=== PATIENT | male | born 1985 | race Caucasian/White ===

== ENCOUNTER 2017-05-14 18:32 | Emergency (ER) | payer MEDICAID, OTHER ==
[~2017-05-14] VITALS: Ht 162.6 cm; Wt 61.3 kg
[~2017-05-14 18:32] MED LIST: ADV100INH INH; ADV250INH INH; ADVA230A INH; ALBU17IN INH; BENA25CA2 PO; BENA25TA4 PO; CELE40TA PO; CLAR10CA3 PO; DIPH25CA PO; INVE156I IM; LAMI25TA PO; LEXA1TAB PO; LEXA1TAB2 PO; MINI1CAP PO; OMEP10CASR PO; OMEP20CA3 PO; PANT20TA PO; PANT40TA2 PO; RISP25INJ IM; RISP2TAB32 PO; TIOT18INH INH; TRAZ50TA11 PO; ZOLO100T PO; ZYPR10TA PO; ZYRT10CA PO; [UNRECOGNIZED DRUG - OTHER]
[2017-05-14] MEDS ORDERED: DEPA500T2 PO (19:00)
[2017-05-14] MEDS ORDERED: BENA25TA10 PO (19:00)
[2017-05-14] MEDS ORDERED: FOLI1TAB4 PO (19:00)
[2017-05-14] MEDS ORDERED: ZYPR5TAB2 PO (19:00)
[2017-05-14] MEDS ORDERED: ADV500INH INH (19:00)
[2017-05-14] MEDS ORDERED: CITA20TA4 PO (19:00)
[2017-05-14] MEDS ORDERED: traZODone 50 MG TAB PO ONE (21:00)
[2017-05-14] MEDS ORDERED: PRAZOSIN 1 MG CAP PO ONE (21:00)
[2017-05-14 21:02] VITALS: BP 131/76
== END 2017-05-14 21:10 | disposition home or self-care (01) ==
LOC: M ED 18:32
DX: Z76.0 Encounter for issue of repeat prescription (principal); F41.9 Anxiety disorder, unspecified; F17.200 Nicotine dependence, unspecified, uncomplicated; Z79.899 Other long term (current) drug therapy; Z91.040 Latex allergy status; Z91.030 Bee allergy status

== ENCOUNTER 2017-07-04 11:50 | Inpatient (IN) | payer MEDICAID ==
[~2017-07-04] VITALS: Ht 162.6 cm; Wt 63.6 kg
[~2017-07-04 11:50] MED LIST changes: +ADV500INH INH; +BENA25TA10 PO; +CITA20TA4 PO; +DEPA500T2 PO; +FOLI1TAB4 PO; +ZYPR5TAB2 PO
[2017-07-04] MEDS ORDERED: DIVA125C5 PO ×2 (12:06)
[2017-07-04 12:24] LABS: MEAN CORPUSCULAR HEMOGLOBIN 29.1 pg (27.0-33.0); MEAN CORPUSCULAR HGB CONC 34.2 g/dl (32.0-36.5); MEAN CORPUSCULAR VOLUME 84.9 fl (80.0-96.0); RED CELL DISTRIBUTION WIDTH 13.3 % (11.5-14.5); WHITE BLOOD COUNT 6.3 10^3/uL (4.0-10.0)
[2017-07-04 12:51] LABS: ALBUMIN 3.9 GM/DL (3.2-5.2); ALBUMIN/GLOBULIN RATIO 1.39 (1.00-1.93); ALKALINE PHOSPHATASE 62 U/L (45-117); ALT/SGPT 19 U/L (12-78); ANION GAP 7 MEQ/L (8-16); AST/SGOT 13 U/L (15-37); BILIRUBIN,DIRECT 0.1 MG/DL (0.0-0.2); BILIRUBIN,TOTAL 0.4 MG/DL (0.2-1.0); BLOOD UREA NITROGEN 11 MG/DL (7-18); CALCIUM LEVEL 8.2 MG/DL (8.5-10.1); CARBON DIOXIDE LEVEL 29 MEQ/L (21-32); CHLORIDE LEVEL 105 MEQ/L (98-107); CREATININE FOR GFR 0.91 MG/DL (0.70-1.30); GLOMERULAR FILTRATION RATE > 60.0 (>60); GLUCOSE, FASTING 89 MG/DL (70-105); POTASSIUM SERUM 3.9 MEQ/L (3.5-5.1); SODIUM LEVEL 141 MEQ/L (136-145); TOTAL PROTEIN 6.7 GM/DL (6.4-8.2)
[2017-07-04 14:06] LABS: METHADONE URINE NEGATIVE (NEGATIVE)
[2017-07-04] MEDS ORDERED: CELE10TA PO (14:28)
[2017-07-04] MEDS ORDERED: CITA20TA4 PO (14:28)
[2017-07-04] MEDS ORDERED: SPIR25TA2 PO (14:37)
[2017-07-04] MEDS ORDERED: ESTR1TAB PO (14:37)
[2017-07-04] MEDS ORDERED: MOM 30ML SUSPENSION UDC PO PRN (21:00)
[2017-07-04] MEDS ORDERED: MAALOX 30 ML SUSP *UDC PO PRN (21:00)
[2017-07-04] MEDS: OLANZapine 5 MG TAB PO SCH (21:38)
[2017-07-04] MEDS: PRAZOSIN 1 MG CAP PO SCH (21:40)
[2017-07-04] MEDS: ADVAIR HFA 230/21MCG INHALER INH SCH (21:41)
[2017-07-04] MEDS: ESTRADIOL 1 MG TAB PO SCH (21:42)
[2017-07-04] MEDS: SPIRONOLACTONE 50 MG TAB PO SCH (21:42)
[2017-07-04] MEDS: diphenhydrAMINE 50 MG CAP PO PRN (21:49)
[2017-07-04] MEDS: traZODone 50 MG TAB PO PRN (22:28)
[2017-07-05] MEDS ORDERED: OLANZapine 5 MG TAB PO ONE (00:15)
--- NOTE | 2017-07-05 08:00 | ECGEPIP ---
Stationary ECG Study [facility] - ED Test Date: 2017-07-04 Pat Name: BARB VALLE Department: Room: - Gender: M Room Worker: connor : 1985 Requested By: Stalin Luajn Order Number: [id number] Reading MD: Kathleen Rudolph Measurements Intervals Duncan Rate: 79 P: 61 LA: 142 QRS: 59 QRSD: 94 T: 23 QT: 366 QTc: 422 Interpretive Statements SINUS RHYTHM NSTTW ABNORMALITY INCREASED RATE 08/03/15 Electronically Signed On 07-05-2017 7:59:51 EDT by Kathleen Rudolph
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
[2017-07-05] MEDS ORDERED: ALBUTEROL SULFATE 2.5 MG/0.5 ML INH NEB SOLN NEB PRN (09:30)
[2017-07-05] MEDS: ADVAIR HFA 230/21MCG INHALER INH SCH ×2 (09:51→20:05)
[2017-07-05] MEDS: diphenhydrAMINE 50 MG CAP PO PRN (09:51)
[2017-07-05] MEDS: FOLIC ACID 1 MG TAB PO SCH (09:52)
[2017-07-05] MEDS: ESTRADIOL 1 MG TAB PO SCH ×2 (09:52→20:05)
[2017-07-05] MEDS: CitaloPRAM (CeleXA) 10 MG TABLET PO SCH (09:52)
[2017-07-05] MEDS: PANTOPRAZOLE 40MG TAB (PROTONIX) PO SCH (09:52)
[2017-07-05] MEDS: SPIRONOLACTONE 50 MG TAB PO SCH ×2 (09:52→16:43)
[2017-07-05] MEDS: TIOTROPIUM INHALER/CAPSULE (SPIRIVA) INH SCH (10:10)
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
[2017-07-05] MEDS ORDERED: diphenhydrAMINE 25 MG CAP PO PRN (16:15)
[2017-07-05] MEDS: ACETAMINOPHEN TAB 650MG DOSE (2X325MG) PO PRN (17:59)
[2017-07-05 18:00] VITALS: BP 119/73
[2017-07-05] MEDS: PRAZOSIN 1 MG CAP PO SCH (20:05)
[2017-07-05] MEDS: OLANZapine 5 MG TAB PO SCH (20:05)
[2017-07-05] MEDS: traZODone 50 MG TAB PO PRN (21:39)
[2017-07-06 06:56] VITALS: BP 91/51
[2017-07-06] MEDS: ESTRADIOL 1 MG TAB PO SCH ×2 (09:20→20:38)
[2017-07-06] MEDS: ADVAIR HFA 230/21MCG INHALER INH SCH ×2 (09:20→20:38)
[2017-07-06] MEDS: TIOTROPIUM INHALER/CAPSULE (SPIRIVA) INH SCH (09:20)
[2017-07-06] MEDS: diphenhydrAMINE 50 MG CAP PO PRN ×2 (09:21→16:06)
[2017-07-06] MEDS: SPIRONOLACTONE 50 MG TAB PO SCH ×2 (09:21→16:06)
[2017-07-06] MEDS: FOLIC ACID 1 MG TAB PO SCH (09:21)
[2017-07-06] MEDS: CitaloPRAM (CeleXA) 10 MG TABLET PO SCH (09:21)
[2017-07-06] MEDS: PANTOPRAZOLE 40MG TAB (PROTONIX) PO SCH (09:21)
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
[2017-07-06 18:33] VITALS: BP 134/70
[2017-07-06] MEDS: OLANZapine 5 MG TAB PO SCH (20:38)
[2017-07-06] MEDS: PRAZOSIN 1 MG CAP PO SCH (20:38)
[2017-07-06] MEDS: ACETAMINOPHEN TAB 650MG DOSE (2X325MG) PO PRN (20:39)
[2017-07-06] MEDS: traZODone 50 MG TAB PO PRN (21:00)
[2017-07-07 06:30] VITALS: BP 120/57
[2017-07-07] MEDS: PANTOPRAZOLE 40MG TAB (PROTONIX) PO SCH (09:43)
[2017-07-07] MEDS: FOLIC ACID 1 MG TAB PO SCH (09:43)
[2017-07-07] MEDS: SPIRONOLACTONE 50 MG TAB PO SCH ×2 (09:44→16:12)
[2017-07-07] MEDS: CitaloPRAM (CeleXA) 10 MG TABLET PO SCH (09:44)
[2017-07-07] MEDS: ADVAIR HFA 230/21MCG INHALER INH SCH ×2 (09:44→20:23)
[2017-07-07] MEDS: ESTRADIOL 1 MG TAB PO SCH ×2 (09:44→20:22)
[2017-07-07] MEDS: TIOTROPIUM INHALER/CAPSULE (SPIRIVA) INH SCH (09:44)
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
[2017-07-07] MEDS: diphenhydrAMINE 50 MG CAP PO PRN (16:13)
[2017-07-07 18:19] VITALS: BP 120/72
[2017-07-07] MEDS: OLANZapine 5 MG TAB PO SCH (20:22)
[2017-07-07] MEDS: PRAZOSIN 1 MG CAP PO SCH (20:25)
[2017-07-07] MEDS: traZODone 50 MG TAB PO PRN (21:11)
[2017-07-07] MEDS: ACETAMINOPHEN TAB 650MG DOSE (2X325MG) PO PRN (21:12)
[2017-07-08 06:00] VITALS: BP 111/55
[2017-07-08] MEDS: SPIRONOLACTONE 50 MG TAB PO SCH ×2 (09:22→16:12)
[2017-07-08] MEDS: TIOTROPIUM INHALER/CAPSULE (SPIRIVA) INH SCH (09:23)
[2017-07-08] MEDS: FOLIC ACID 1 MG TAB PO SCH (09:23)
[2017-07-08] MEDS: ADVAIR HFA 230/21MCG INHALER INH SCH ×2 (09:23→20:14)
[2017-07-08] MEDS: diphenhydrAMINE 50 MG CAP PO PRN (09:23)
[2017-07-08] MEDS: CitaloPRAM (CeleXA) 10 MG TABLET PO SCH (09:23)
[2017-07-08] MEDS: ESTRADIOL 1 MG TAB PO SCH ×2 (09:23→20:16)
[2017-07-08] MEDS: PANTOPRAZOLE 40MG TAB (PROTONIX) PO SCH (09:23)
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
[2017-07-08 18:00] VITALS: BP 125/76
[2017-07-08] MEDS: diphenhydrAMINE 25 MG CAP PO PRN (19:21)
[2017-07-08] MEDS: OLANZapine 5 MG TAB PO SCH (20:14)
[2017-07-08] MEDS: PRAZOSIN 1 MG CAP PO SCH (20:16)
[2017-07-08] MEDS: traZODone 50 MG TAB PO SCH (21:21)
[2017-07-08] MEDS: ACETAMINOPHEN TAB 650MG DOSE (2X325MG) PO PRN (21:21)
[2017-07-09 07:00] VITALS: BP 101/52
[2017-07-09] MEDS: ADVAIR HFA 230/21MCG INHALER INH SCH ×2 (09:15→20:57)
[2017-07-09] MEDS: CitaloPRAM (CeleXA) 10 MG TABLET PO SCH (09:16)
[2017-07-09] MEDS: TIOTROPIUM INHALER/CAPSULE (SPIRIVA) INH SCH (09:16)
[2017-07-09] MEDS: PANTOPRAZOLE 40MG TAB (PROTONIX) PO SCH (09:17)
[2017-07-09] MEDS: FOLIC ACID 1 MG TAB PO SCH (09:17)
[2017-07-09] MEDS: SPIRONOLACTONE 50 MG TAB PO SCH ×2 (09:17→17:08)
[2017-07-09] MEDS: ESTRADIOL 1 MG TAB PO SCH ×2 (09:17→20:56)
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
[2017-07-09 18:00] VITALS: BP 100/50
[2017-07-09] MEDS: diphenhydrAMINE 25 MG CAP PO PRN (20:56)
[2017-07-09] MEDS: traZODone 50 MG TAB PO SCH (20:56)
[2017-07-09] MEDS: OLANZapine 5 MG TAB PO SCH (20:56)
[2017-07-09] MEDS: PRAZOSIN 1 MG CAP PO SCH (20:57)
[2017-07-10 06:45] VITALS: BP 133/66
[2017-07-10] MEDS: CitaloPRAM (CeleXA) 10 MG TABLET PO SCH (09:45)
[2017-07-10] MEDS: FOLIC ACID 1 MG TAB PO SCH (09:45)
[2017-07-10] MEDS: SPIRONOLACTONE 50 MG TAB PO SCH ×2 (09:45→16:50)
[2017-07-10] MEDS: ESTRADIOL 1 MG TAB PO SCH ×2 (09:45→20:05)
[2017-07-10] MEDS: TIOTROPIUM INHALER/CAPSULE (SPIRIVA) INH SCH (09:45)
[2017-07-10] MEDS: PANTOPRAZOLE 40MG TAB (PROTONIX) PO SCH (09:45)
[2017-07-10] MEDS: ADVAIR HFA 230/21MCG INHALER INH SCH ×2 (09:45→20:07)
[2017-07-10] MEDS: diphenhydrAMINE 25 MG CAP PO PRN (18:09)
[2017-07-10] MEDS: ACETAMINOPHEN TAB 650MG DOSE (2X325MG) PO PRN (18:17)
[2017-07-10 18:18] VITALS: BP 123/70
[2017-07-10] MEDS: OLANZapine 5 MG TAB PO SCH (20:05)
[2017-07-10] MEDS: PRAZOSIN 1 MG CAP PO SCH (20:06)
[2017-07-10] MEDS: traZODone 50 MG TAB PO SCH (20:06)
[2017-07-11 06:36] VITALS: BP 109/50
[2017-07-11] MEDS: PANTOPRAZOLE 40MG TAB (PROTONIX) PO SCH (09:08)
[2017-07-11] MEDS: TIOTROPIUM INHALER/CAPSULE (SPIRIVA) INH SCH (09:08)
[2017-07-11] MEDS: ADVAIR HFA 230/21MCG INHALER INH SCH ×2 (09:08→20:35)
[2017-07-11] MEDS: FOLIC ACID 1 MG TAB PO SCH (09:09)
[2017-07-11] MEDS: ESTRADIOL 1 MG TAB PO SCH ×2 (09:09→20:33)
[2017-07-11] MEDS: diphenhydrAMINE 25 MG CAP PO PRN ×2 (09:09→19:44)
[2017-07-11] MEDS: SPIRONOLACTONE 50 MG TAB PO SCH ×2 (09:09→16:39)
[2017-07-11] MEDS: CitaloPRAM (CeleXA) 10 MG TABLET PO SCH (09:09)
[2017-07-11] MEDS: ACETAMINOPHEN TAB 650MG DOSE (2X325MG) PO PRN (16:39)
[2017-07-11 18:00] VITALS: BP 110/61
[2017-07-11] MEDS: traZODone 50 MG TAB PO SCH (20:33)
[2017-07-11] MEDS: OLANZapine 5 MG TAB PO SCH (20:33)
[2017-07-11] MEDS: PRAZOSIN 1 MG CAP PO SCH (20:33)
[2017-07-12 06:39] VITALS: BP 99/59
[2017-07-12] MEDS: ESTRADIOL 1 MG TAB PO SCH ×2 (09:11→21:07)
[2017-07-12] MEDS: FOLIC ACID 1 MG TAB PO SCH (09:11)
[2017-07-12] MEDS: ADVAIR HFA 230/21MCG INHALER INH SCH ×2 (09:11→21:07)
[2017-07-12] MEDS: SPIRONOLACTONE 50 MG TAB PO SCH ×2 (09:11→17:48)
[2017-07-12] MEDS: TIOTROPIUM INHALER/CAPSULE (SPIRIVA) INH SCH (09:11)
[2017-07-12] MEDS: CitaloPRAM (CeleXA) 10 MG TABLET PO SCH (09:11)
[2017-07-12] MEDS: PANTOPRAZOLE 40MG TAB (PROTONIX) PO SCH (09:11)
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
[2017-07-12 18:00] VITALS: BP 122/67
[2017-07-12 21:07] VITALS: BP 121/79
[2017-07-12] MEDS: OLANZapine 5 MG TAB PO SCH (21:07)
[2017-07-12] MEDS: PRAZOSIN 1 MG CAP PO SCH (21:07)
[2017-07-12] MEDS: traZODone 50 MG TAB PO SCH (21:55)
[2017-07-13 06:53] VITALS: BP 92/56
[2017-07-13] MEDS: TIOTROPIUM INHALER/CAPSULE (SPIRIVA) INH SCH (08:59)
[2017-07-13] MEDS: CitaloPRAM (CeleXA) 10 MG TABLET PO SCH (09:00)
[2017-07-13] MEDS: FOLIC ACID 1 MG TAB PO SCH (09:00)
[2017-07-13] MEDS: PANTOPRAZOLE 40MG TAB (PROTONIX) PO SCH (09:01)
[2017-07-13] MEDS: ESTRADIOL 1 MG TAB PO SCH (09:01)
[2017-07-13] MEDS: SPIRONOLACTONE 50 MG TAB PO SCH (09:01)
[2017-07-13] MEDS: ADVAIR HFA 230/21MCG INHALER INH SCH (09:02)
[2017-07-13] MEDS ORDERED: TRAZO50TA PO (09:12)
[2017-07-13] MEDS ORDERED: DIPH25CA PO (09:12)
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
== END 2017-07-13 11:26 | disposition home or self-care (01) | DRG 754 ==
LOC: M ED 11:50 → EDBD 11:50 → M ED INP 16:09 → M PSY 17:38
PROVIDERS: ADMIT Psychiatry & Neurology Psychiatry; ATTEND Psychiatry & Neurology Psychiatry
DX: F32.9 Major depressive disorder, single episode, unspecified (principal); J45.909 Unspecified asthma, uncomplicated; K21.9 Gastro-esophageal reflux disease without esophagitis; F43.10 Post-traumatic stress disorder, unspecified; Z79.899 Other long term (current) drug therapy; G47.00 Insomnia, unspecified; M54.5 Low back pain; F64.9 Gender identity disorder, unspecified; F17.200 Nicotine dependence, unspecified, uncomplicated; Z91.038 Other insect allergy status; Z91.040 Latex allergy status